=== PATIENT | male | born 1950 ===

== ENCOUNTER 2023-09-01 08:50 | Emergency (ER) | payer OTHER ==
[~2023-09-01] VITALS: Ht 180.3 cm; Wt 83.5 kg
[~2023-09-01 08:50] MED LIST: ATACAND16 MG PO; CRESTOR40 MG PO; DEXILANT60 MG PO; ELIQUIS5 MG PO; FLECAINIDE ACET50 MG PO; JARDIANCE10 MG PO; LYRICA50 MG PO; OXYC1TAB9 PO; SYNTHROID75 MCG PO; TOPROL XL25 M1 PO; [UNRECOGNIZED DRUG - OTHER]
[2023-09-01 10:24] LABS: URINE APPEARANCE Clear; URINE BILIRRUBIN Negative (NEGATIVE); URINE BLOOD Negative; URINE COLOR Yellow; URINE LEUKOCYTE Negative; URINE NITRATE Negative; URINE PROTEIN Negative (NEGATIVE); URINE UROBILINOGEN 0.2 E.U./dl
[2023-09-01 10:25] LABS: HEMATOCRIT 46.5 % (39.0-48.0); HEMOGLOBIN 15.5 g/dL (13-16.00); MEAN CELL VOLUME 88.3 fL (80.0-100.00); MEAN CORPUSCULAR HEMOGLOBIN 29.5 pg (27.00-32.0); MEAN CORPUSCULAR HGB CONC 33.4 g/dl (32.0-36.0); PLATELET COUNT 213 K/uL (150-450); RED BLOOD COUNT 5.27 M/uL (4.00-6.00); RED CELL DISTRIBUTION WIDTH 14.5 % (11.5-14.5)
[2023-09-01 10:28] LABS: URINE BACTERIA 21.4 uL (0.0-1933)
[2023-09-01 10:55] LABS: ALBUMIN 3.8 gm/dL (3.4-5.0); BILIRUBIN TOTAL 0.72 mg/dL (0.3-1.2); CALCIUM 9.5 mg/dL (8.5-10.1); CREATININE SERUM 1.86 mg/dL (0.70-1.30); GFR 35.99; GLOBULINA 3.4 G/DL (2.4-3.5); POTASSIUM 5.37 mEq/L (3.5-5.1); TOTAL PROTEIN 7.2 gm/dL (6.4-8.2)
[2023-09-01 11:01] LABS: URINE EPITHELIAL CELLS 0.7 uL (0.0-38.8); URINE GLUCOSE >=1000 MG/DL (NEGATIVE); URINE RBC 1.2 uL (0.0-20.8); URINE WBC 0.9 uL (0.0-23.2)
== END 2023-09-01 17:37 | disposition home or self-care (01) ==
LOC: ER 08:50
PROVIDERS: General Practice
DX: K64.9 Unspecified hemorrhoids (principal)
CPT/HCPCS: 36415; 74176; 96372; 99283; J3490